=== PATIENT | female | born 2000 | race Caucasian/White ===

== ENCOUNTER 2024-09-05 12:08 | Emergency (ER) | payer SELFPAY ==
[~2024-09-05] VITALS: Ht 157.5 cm; Wt 72.5 kg
[2024-09-05 12:12] VITALS: O2SAT 100
[2024-09-05 12:18] VITALS: BP 129/81; PULSE 90; RESP 16; TEMP 98.1; O2SAT 100
[2024-09-05 13:18] LABS: BASOPHILS % 0.4 % (0.0-2.0); EOSINOPHILS % 1.3 % (0.0-5.0); HEMATOCRIT. 39.2 % (36.0-48.0); LYMPHOCYTES % 29.3 % (20.0-50.0); MEAN CORPUSCULAR HGB CONC 33.2 g/dL (31.0-37.0); MEAN CORPUSCULAR VOLUME 93.5 fL (81.0-99.0); MEAN PLATELET VOLUME 8.4 fl (7.4-10.4); MONOCYTES % 11.4 % (2.0-8.0); NEUTROPHILS % 57.6 % (40.0-76.0); PLATELET 296 x1000/uL (130-400); RED BLOOD CELL COUNT 4.19 mill/uL (4.2-5.4); RED CELL DISTRIBUTION WIDTH 13.1 % (11.6-14.6); WHITE BLOOD COUNT 10.1 x1000/uL (4.5-11.0)
[2024-09-05 13:37] LABS: CHLORIDE 107 mEq/L (98-107); POTASSIUM 4.3 mEq/L (3.5-5.1); SODIUM 139 mEq/L (136-145)
[2024-09-05 13:38] LABS: CALCIUM 9.5 mg/dL (8.7-10.4); CARBON DIOXIDE 27 mEq/L (21-32)
[2024-09-05 13:43] LABS: CREATININE 0.6 mg/dL (0.6-1.0); GLUCOSE 78 mg/dL (70-105); UREA NITROGEN BLOOD 6 mg/dL (9-23)
[2024-09-05 13:56] LABS: B-HCG QUANTITATIVE 38468 mIU/mL (<3)
[2024-09-05 14:01] LABS: CLARITY URINE CLEAR (CLEAR); COLOR URINE YELLOW (YELLOW); GLUCOSE URINE NEGATIVE (NEGATIVE); KETONES URINE NEGATIVE (NEGATIVE); LEUKOCYTE ESTERASE URINE NEGATIVE (NEGATIVE); NITRITE URINE NEGATIVE (NEGATIVE); OCCULT BLOOD URINE NEGATIVE (NEGATIVE); PH URINE 7.5 (4.5-8.0); PROTEIN URINE NEGATIVE (NEGATIVE); SPECIFIC GRAVITY URINE 1.017 (1.005-1.030)
== END 2024-09-05 15:44 | disposition home or self-care (01) ==
LOC: ER 12:08
DX: O20.8 Other hemorrhage in early pregnancy (principal); O26.891 Other specified pregnancy related conditions, first trimester; R10.2 Pelvic and perineal pain; Z3A.01 Less than 8 weeks gestation of pregnancy
CPT/HCPCS: 36415; 76801; 80048; 81003; 81025; 84702; 85025; 99284

== ENCOUNTER 2024-10-05 19:28 | Emergency (ER) | payer MEDICAID ==
[~2024-10-05] VITALS: Ht 149.9 cm; Wt 75.0 kg
[2024-10-05 19:52] VITALS: O2SAT 100
[2024-10-05 20:19] LABS: CLARITY URINE TURBID (CLEAR); COLOR URINE YELLOW (YELLOW); GLUCOSE URINE NEGATIVE (NEGATIVE); KETONES URINE 1+ (NEGATIVE); LEUKOCYTE ESTERASE URINE TRACE (NEGATIVE); NITRITE URINE NEGATIVE (NEGATIVE); OCCULT BLOOD URINE NEGATIVE (NEGATIVE); PROTEIN URINE NEGATIVE (NEGATIVE)
[2024-10-05 20:34] LABS: BASOPHILS % 0.3 % (0.0-2.0); EOSINOPHILS % 1.3 % (0.0-5.0); HEMATOCRIT. 41.9 % (36.0-48.0); HEMOGLOBIN. 13.8 g/dL (12.0-16.0); LYMPHOCYTES % 20.6 % (20.0-50.0); MEAN CORPUSCULAR HEMOGLOBIN 31.1 pg (28.0-32.0); MEAN CORPUSCULAR VOLUME 94.4 fL (81.0-99.0); MEAN PLATELET VOLUME 8.5 fl (7.4-10.4); MONOCYTES % 8.5 % (2.0-8.0); NEUTROPHILS % 69.3 % (40.0-76.0); PLATELET 311 x1000/uL (130-400); RED BLOOD CELL COUNT 4.44 mill/uL (4.2-5.4); RED CELL DISTRIBUTION WIDTH 13.2 % (11.6-14.6); WHITE BLOOD COUNT 14.9 x1000/uL (4.5-11.0)
[2024-10-05 20:50] LABS: CHLORIDE 107 mEq/L (98-107); POTASSIUM 3.6 mEq/L (3.5-5.1); SODIUM 138 mEq/L (136-145)
[2024-10-05 20:51] LABS: CALCIUM 10.4 mg/dL (8.7-10.4); CARBON DIOXIDE 24 mEq/L (21-32)
[2024-10-05 20:56] LABS: CREATININE 0.5 mg/dL (0.6-1.0); GLUCOSE 86 mg/dL (70-105); UREA NITROGEN BLOOD 7 mg/dL (9-23)
[2024-10-05 21:01] LABS: HCG SCREEN POSITIVE
[2024-10-05 21:13] LABS: AMORPHOUS SEDIMENT URINE 2+ /lpf; BACTERIA URINE 2+; RBC URINE 0-2 /hpf (0-2); SQUAMOUS EPITHELIAL CELL URINE 1+ /lpf (RARE/1+); WBC URINE 0-2 /hpf (0-2)
[2024-10-05] MEDS ORDERED: MISOPROSTOL 200MCG TABLET PO ONE (22:45)
[2024-10-05] MEDS ORDERED: CEPH500C2 MT (23:25)
[2024-10-05] MEDS ORDERED: T3 PO (23:25)
[2024-10-05] MEDS: CEPHALEXIN 250MG CAPSULE PO ONE (23:43)
[2024-10-05] MEDS: MISOPROSTOL 100MCG TABLET PO NR (23:43)
[2024-10-05] MEDS: ACETAMINOPHEN 325MG TABLET PO ONE (23:43)
[2024-10-05] MEDS: ONDANSETRON HCL 4MG/2ML INJ IM ONE (23:43)
[2024-10-05 23:53] VITALS: BP 112/68; PULSE 86; RESP 14; TEMP 36.55848; O2SAT 100
== END 2024-10-06 00:03 | disposition home or self-care (01) ==
LOC: ER 19:28
DX: O03.9 Complete or unspecified spontaneous abortion without complication (principal); O23.41 Unspecified infection of urinary tract in pregnancy, first trimester; O98.22 Gonorrhea complicating childbirth; N39.0 Urinary tract infection, site not specified; Z3A.08 8 weeks gestation of pregnancy
CPT/HCPCS: 99285; 76705; 76801; 80048; 81003; 81025; 84703; 84702; 85025; 86850; 86900; 86901; 36415; 76817; 96372; J2405

== ENCOUNTER 2025-03-03 05:01 | Emergency (ER) | payer MEDICAID, OTHER ==
[~2025-03-03] VITALS: Ht 162.6 cm; Wt 54.0 kg
[~2025-03-03 05:01] MED LIST: CEPH500C2 MT; T3 PO
[2025-03-03 05:08] VITALS: O2SAT 100
[2025-03-03 06:27] LABS: CHLORIDE 106 mEq/L (98-107); POTASSIUM 3.6 mEq/L (3.5-5.1); SODIUM 140 mEq/L (136-145)
[2025-03-03 06:28] LABS: CALCIUM 9.3 mg/dL (8.7-10.4); CARBON DIOXIDE 24 mEq/L (21-32)
[2025-03-03 06:33] LABS: CREATININE 0.5 mg/dL (0.6-1.0); GLUCOSE 101 mg/dL (70-105); UREA NITROGEN BLOOD 10 mg/dL (9-23)
[2025-03-03 06:35] LABS: ALANINE AMINOTRANSFERASE 20 IU/L (10-49); ALBUMIN 4.2 g/dL (3.2-4.8); ASPARTATE AMINOTRANSFERASE 23 IU/L (<34); BASOPHILS % 0.7 % (0.0-2.0); EOSINOPHILS % 1.2 % (0.0-5.0); HEMATOCRIT. 39.7 % (36.0-48.0); HEMOGLOBIN. 13.6 g/dL (12.0-16.0); MEAN CORPUSCULAR HEMOGLOBIN 31.2 pg (28.0-32.0); MEAN CORPUSCULAR HGB CONC 34.1 g/dL (31.0-37.0); MEAN CORPUSCULAR VOLUME 91.4 fL (81.0-99.0); MONOCYTES % 9.4 % (2.0-8.0); NEUTROPHILS % 63.7 % (40.0-76.0); RED BLOOD CELL COUNT 4.35 mill/uL (4.2-5.4); RED CELL DISTRIBUTION WIDTH 12.3 % (11.6-14.6)
[2025-03-03 06:36] LABS: BILIRUBIN TOTAL 0.7 mg/dL (0.1-1.0); PROTEIN TOTAL 7.5 g/dL (6.0-8.3)
[2025-03-03 06:39] LABS: DIFFERENTIAL COMMENT 1
[2025-03-03] MEDS: ACETAMINOPHEN 1000MG/100ML 100 ML IV ONE (06:43)
[2025-03-03 07:14] LABS: B-HCG QUANTITATIVE 1 mIU/mL (<6)
[2025-03-03 07:16] LABS: HCG SCREEN NEGATIVE
[2025-03-03 07:42] LABS: CLARITY URINE TURBID (CLEAR); COLOR URINE BLOODY (YELLOW); GLUCOSE URINE NEGATIVE (NEGATIVE); KETONES URINE NEGATIVE (NEGATIVE); PROTEIN URINE 1+ (NEGATIVE); SPECIFIC GRAVITY URINE 1.027 (1.005-1.030)
[2025-03-03 07:43] LABS: LEUKOCYTE ESTERASE URINE 3+ (NEGATIVE); NITRITE URINE POSITIVE (NEGATIVE); OCCULT BLOOD URINE 1+ (NEGATIVE); UROBILINOGEN URINE 0.2 E.U./dL (0.2-1.0)
[2025-03-03] MEDS ORDERED: SULF1TAB48 PO (08:31)
[2025-03-03] MEDS ORDERED: T3 PO (08:31)
[2025-03-03 08:54] LABS: PLATELET 228 x1000/uL (130-400)
[2025-03-03 09:06] LABS: BACTERIA URINE 4+; RBC URINE TNTC /hpf (0-2); SQUAMOUS EPITHELIAL CELL URINE 2+ /lpf (RARE/1+)
[2025-03-03 09:08] VITALS: BP 99/72; PULSE 85; RESP 15; TEMP 36.7; O2SAT 100
== END 2025-03-03 09:12 | disposition home or self-care (01) ==
LOC: ER 05:01
DX: N39.0 Urinary tract infection, site not specified (principal); Z79.899 Other long term (current) drug therapy
CPT/HCPCS: 36415; 76830; 76856; 80053; 81003; 84702; 84703; 85025; 86850; 86900; 87077; 87186; 96365; 99285; J0131

== ENCOUNTER 2025-03-09 01:21 | Inpatient (IN) | payer OTHER ==
[~2025-03-09] VITALS: Ht 160 cm; Wt 59.9 kg
[~2025-03-09 01:21] MED LIST changes: +SULF1TAB48 PO
[2025-03-09 02:04] LABS: BASOPHILS % 0.3 % (0.0-2.0); EOSINOPHILS % 1.8 % (0.0-5.0); HEMATOCRIT. 40.7 % (36.0-48.0); HEMOGLOBIN. 13.9 g/dL (12.0-16.0); LYMPHOCYTES % 28.9 % (20.0-50.0); MEAN CORPUSCULAR HEMOGLOBIN 31.3 pg (28.0-32.0); MEAN CORPUSCULAR HGB CONC 34.2 g/dL (31.0-37.0); MEAN CORPUSCULAR VOLUME 91.5 fL (81.0-99.0); MEAN PLATELET VOLUME 8.4 fl (7.4-10.4); PLATELET 264 x1000/uL (130-400); RED BLOOD CELL COUNT 4.45 mill/uL (4.2-5.4); RED CELL DISTRIBUTION WIDTH 12.6 % (11.6-14.6); WHITE BLOOD COUNT 11.2 x1000/uL (4.5-11.0)
[2025-03-09 02:13] LABS: CHLORIDE 101 mEq/L (98-107); POTASSIUM 3.7 mEq/L (3.5-5.1); SODIUM 136 mEq/L (136-145)
[2025-03-09 02:14] LABS: CALCIUM 9.6 mg/dL (8.7-10.4); CARBON DIOXIDE 26 mEq/L (21-32)
[2025-03-09 02:19] LABS: CREATININE 0.6 mg/dL (0.6-1.0); GLUCOSE 96 mg/dL (70-105); UREA NITROGEN BLOOD 10 mg/dL (9-23)
[2025-03-09 02:26] LABS: HCG SCREEN NEGATIVE
[2025-03-09 02:32] LABS: ALANINE AMINOTRANSFERASE 67 IU/L (10-49); ALBUMIN 4.6 g/dL (3.2-4.8); ASPARTATE AMINOTRANSFERASE 60 IU/L (<34); BILIRUBIN DIRECT < 0.1 mg/dL (<=3.0); BILIRUBIN TOTAL 0.4 mg/dL (0.1-1.0)
[2025-03-09] MEDS: MORPHINE SULFATE 4 MG/ML INJ (FOR IV/IM USE) IV ONE ×2 (02:51→05:08)
[2025-03-09] MEDS: ONDANSETRON HCL 4MG/2ML INJ IV ONE ×2 (02:52→05:08)
[2025-03-09] MEDS: SODIUM CHLORIDE 0.9% 1,000 ML IV ONE (03:01)
[2025-03-09 03:23] LABS: HCG SCREEN NEGATIVE
[2025-03-09] MEDS: IOHEXOL-350 100 ML BOTTLE ONE (03:58)
[2025-03-09] MEDS: IOHEXOL-300 100 ML BOTTLE ONE (04:03)
[2025-03-09 08:00] VITALS: BP_SYST 100; BP_SYST 101; BP_DIAS 60; BP_DIAS 61; PULSE 85; PULSE 98; RESP 18; TEMP 37.6; O2SAT 99
[2025-03-09] MEDS ORDERED: ONDANSETRON HCL 4MG/2ML INJ IV PRN (10:15)
[2025-03-09] MEDS ORDERED: ACETAMINOPHEN 325MG TABLET PO PRN (10:15)
[2025-03-09 12:00] VITALS: BP 106/58; PULSE 18; RESP 18; TEMP 36.5; O2SAT 100
[2025-03-09 15:23] LABS: CLARITY URINE CLOUDY (CLEAR); COLOR URINE YELLOW (YELLOW); GLUCOSE URINE NEGATIVE (NEGATIVE); KETONES URINE NEGATIVE (NEGATIVE); LEUKOCYTE ESTERASE URINE 2+ (NEGATIVE); NITRITE URINE NEGATIVE (NEGATIVE); OCCULT BLOOD URINE 3+ (NEGATIVE); PROTEIN URINE 1+ (NEGATIVE); SPECIFIC GRAVITY URINE 1.021 (1.005-1.030); UROBILINOGEN URINE 0.2 E.U./dL (0.2-1.0)
[2025-03-09 15:38] LABS: *AMPHETAMINES SCREEN URINE NEGATIVE (NEGATIVE); *BARBITURATES SCREEN URINE NEGATIVE (NEGATIVE); *BENZODIAZEPINES SCREEN URINE NEGATIVE (NEGATIVE)
[2025-03-09 15:39] LABS: *COCAINE SCREEN URINE NEGATIVE (NEGATIVE); CANNABINOID URINE SCREEN NEGATIVE (NEGATIVE); ECSTASY MDMA SCREEN URINE NEGATIVE (NEGATIVE); METHADONE URINE SCREEN NEGATIVE (NEGATIVE); OPIATES URINE SCREEN PRESUMPTIVE POSITIVE (NEGATIVE); PHENCYCLIDINE URINE SCREEN NEGATIVE (NEGATIVE)
[2025-03-09 15:55] LABS: BACTERIA URINE 2+; RBC URINE 15-25 /hpf (0-2); SQUAMOUS EPITHELIAL CELL URINE 1+ /lpf (RARE/1+)
[2025-03-09 20:00] VITALS: BP 98/52; PULSE 79; RESP 18; TEMP 36.3; O2SAT 99
[2025-03-10] VITALS: BP 103/63; PULSE 82; RESP 17; TEMP 36.4; O2SAT 97
[2025-03-10 04:00] VITALS: BP 98/60; PULSE 79; RESP 17; TEMP 36.3; O2SAT 98
[2025-03-10 08:12] VITALS: BP 91/50; PULSE 69; RESP 18; TEMP 36.8; O2SAT 100
[2025-03-10 10:34] VITALS: BP_SYST 108; BP_SYST 91; BP_DIAS 50; BP_DIAS 58; PULSE 69; PULSE 82; TEMP 98.1; TEMP 98.2; O2SAT 100
[2025-03-10 12:00] VITALS: BP 108/58; PULSE 82; RESP 18; TEMP 36.7; O2SAT 100
[2025-03-10] MEDS: CEFTRIAXONE 1GM/50ML 50 ML IV SCH (12:05)
== END 2025-03-10 14:48 | disposition home or self-care (01) | DRG 564 ==
LOC: ER 01:21 → 7EST 05:22 → EDBEDREQTM 06:55 → EDBEDREQ 06:55
PROVIDERS: ADMIT Internal Medicine; ATTEND Internal Medicine
DX: O03.38 Urinary tract infection following incomplete spontaneous abortion (principal); Z98.891 History of uterine scar from previous surgery
CPT/HCPCS: 36415; 74177; 76830; 76856; 80048; 80076; 80305; 81003; 84703; 85025; 86850; 86900; 87070; 87075; 87076; 87077; 87186; 99285; J0696; J2270; J2405; J7030; Q9967

== ENCOUNTER 2025-06-20 13:33 | Emergency (ER) | payer MEDICAID ==
[~2025-06-20] VITALS: Ht 162.6 cm; Wt 70.7 kg
[2025-06-20 13:43] VITALS: O2SAT 100
[2025-06-20 15:03] LABS: CLARITY URINE CLEAR (CLEAR); COLOR URINE YELLOW (YELLOW); GLUCOSE URINE NEGATIVE (NEGATIVE); KETONES URINE TRACE (NEGATIVE); LEUKOCYTE ESTERASE URINE NEGATIVE (NEGATIVE); NITRITE URINE NEGATIVE (NEGATIVE); OCCULT BLOOD URINE 2+ (NEGATIVE); PH URINE 7.0 (4.5-8.0); PROTEIN URINE NEGATIVE (NEGATIVE); SPECIFIC GRAVITY URINE 1.022 (1.005-1.030); UROBILINOGEN URINE 1.0 E.U./dL (0.2-1.0)
[2025-06-20 15:13] LABS: BACTERIA URINE TRACE; RBC URINE 0-2 /hpf (0-2); SQUAMOUS EPITHELIAL CELL URINE 2+ /lpf (RARE/1+); WBC URINE 0-2 /hpf (0-2); YEAST URINE NONE SEEN
[2025-06-20] MEDS: SODIUM CHLORIDE 0.9% 1,000 ML IV ONE (15:29)
[2025-06-20 15:45] LABS: BASOPHILS % 0.0 % (0.0-2.0); EOSINOPHILS % 1.1 % (0.0-5.0); HEMATOCRIT. 40.9 % (36.0-48.0); HEMOGLOBIN. 13.7 g/dL (12.0-16.0); LYMPHOCYTES % 41.9 % (20.0-50.0); MEAN PLATELET VOLUME 8.8 fl (7.4-10.4); MONOCYTES % 18.8 % (2.0-8.0); NEUTROPHILS % 38.2 % (40.0-76.0); PLATELET 252 x1000/uL (130-400); RED BLOOD CELL COUNT 4.36 mill/uL (4.2-5.4); RED CELL DISTRIBUTION WIDTH 12.6 % (11.6-14.6)
[2025-06-20 16:01] LABS: CREATININE 0.5 mg/dL (0.6-1.0); UREA NITROGEN BLOOD 7 mg/dL (9-23)
[2025-06-20 16:37] LABS: B-HCG QUANTITATIVE 15111 mIU/mL (<6)
[2025-06-20] MEDS ORDERED: SULF1TAB48 MT (18:28)
[2025-06-20 19:17] VITALS: BP 112/58; PULSE 94; RESP 13; TEMP 36.6; O2SAT 100
== END 2025-06-20 19:18 | disposition home or self-care (01) ==
LOC: ER 13:33 → CMPBEDREQ 06-21 07:17
DX: O26.851 Spotting complicating pregnancy, first trimester (principal); O23.41 Unspecified infection of urinary tract in pregnancy, first trimester; R10.2 Pelvic and perineal pain; N39.0 Urinary tract infection, site not specified; N89.8 Other specified noninflammatory disorders of vagina; Z3A.01 Less than 8 weeks gestation of pregnancy
CPT/HCPCS: 99284; 96360; 76801; 80048; 81003; 81025; 84702; 85025; 86850; 86900; 86901; 36415; 93005; J7030

== ENCOUNTER 2025-06-24 00:58 | Emergency (ER) | payer MEDICAID ==
[~2025-06-24] VITALS: Ht 157.5 cm; Wt 58.0 kg
[~2025-06-24 00:58] MED LIST changes: +SULF1TAB48 MT
[2025-06-24 01:08] VITALS: O2SAT 97
[2025-06-24] MEDS: ACETAMINOPHEN 500MG TABLET PO ONE (01:57)
[2025-06-24] MEDS: SODIUM CHLORIDE 0.9% 1,000 ML IV ONE (01:57)
[2025-06-24 02:09] LABS: CREATININE 0.6 mg/dL (0.6-1.0); UREA NITROGEN BLOOD 7 mg/dL (9-23)
[2025-06-24 02:11] LABS: ASPARTATE AMINOTRANSFERASE 35 IU/L (<34); BILIRUBIN DIRECT 0.1 mg/dL (<=3.0); BILIRUBIN TOTAL 0.5 mg/dL (0.1-1.0); PROTEIN TOTAL 7.7 g/dL (6.0-8.3)
[2025-06-24 02:12] LABS: CLARITY URINE CLEAR (CLEAR); COLOR URINE YELLOW (YELLOW); GLUCOSE URINE NEGATIVE (NEGATIVE); KETONES URINE NEGATIVE (NEGATIVE); LEUKOCYTE ESTERASE URINE NEGATIVE (NEGATIVE); NITRITE URINE NEGATIVE (NEGATIVE); OCCULT BLOOD URINE TRACE (NEGATIVE); PH URINE 8.0 (4.5-8.0); PROTEIN URINE NEGATIVE (NEGATIVE); SPECIFIC GRAVITY URINE 1.014 (1.005-1.030); UROBILINOGEN URINE 1.0 E.U./dL (0.2-1.0)
[2025-06-24 02:27] LABS: BASOPHILS % 0.4 % (0.0-2.0); EOSINOPHILS % 0.4 % (0.0-5.0); HEMATOCRIT. 39.0 % (36.0-48.0); HEMOGLOBIN. 13.2 g/dL (12.0-16.0); LYMPHOCYTES % 11.2 % (20.0-50.0); MEAN PLATELET VOLUME 9.0 fl (7.4-10.4); MONOCYTES % 13.4 % (2.0-8.0); NEUTROPHILS % 74.6 % (40.0-76.0); PLATELET 261 x1000/uL (130-400); RED BLOOD CELL COUNT 4.27 mill/uL (4.2-5.4); RED CELL DISTRIBUTION WIDTH 12.8 % (11.6-14.6)
[2025-06-24 02:28] LABS: B-HCG QUANTITATIVE 33470 mIU/mL (<6)
[2025-06-24 02:47] LABS: HCG SCREEN POSITIVE
[2025-06-24] MEDS: SODIUM CHLORIDE 0.9% (SEPSIS BOLUS) IV SCH (03:00)
[2025-06-24 03:07] LABS: INFLUENZA TYPE A Presumptive Negative (Pres. Neg.)
[2025-06-24 03:08] LABS: INFLUENZA TYPE B Presumptive Negative (Pres. Neg.)
[2025-06-24 03:10] LABS: RESPIRATORY SYNCYTIAL VIRUS Not Detected (Not Detectd)
[2025-06-24 03:31] LABS: SQUAMOUS EPITHELIAL CELL URINE 1+ /lpf (RARE/1+)
[2025-06-24 03:33] LABS: BACTERIA URINE NONE SEEN; RBC URINE 0-2 /hpf (0-2); WBC URINE 0-2 /hpf (0-2)
[2025-06-24 05:35] VITALS: TEMP 37.1
[2025-06-24] MEDS ORDERED: ACET-2708 MT (05:57)
[2025-06-24] MEDS ORDERED: ALBU90AE INH (05:57)
[2025-06-24 06:13] VITALS: BP 109/71; PULSE 95; RESP 18; O2SAT 99
== END 2025-06-24 06:19 | disposition home or self-care (01) ==
LOC: ER 00:58
DX: O98.511 Other viral diseases complicating pregnancy, first trimester (principal); U07.1 COVID-19; I49.9 Cardiac arrhythmia, unspecified; O26.891 Other specified pregnancy related conditions, first trimester; R10.2 Pelvic and perineal pain; Z00.00 Encounter for general adult medical examination without abnormal findings; Z3A.01 Less than 8 weeks gestation of pregnancy
CPT/HCPCS: 80076; 80048; 81003; 81025; 84703; 84702; 83605; 85025; 85379; 86850; 86900; 86901; 87420; 87040; 87086; 87804 ×2; 36415; 84145; 93970; 76700; 76801; 76817; 93005; 96360; 96361; 99285; 87426; J7030; Z7610; A4606